=== PATIENT | female | born 1970 | race African-American/Black ===

== ENCOUNTER 2019-06-07 14:01 | Outpatient (CLI) | payer OTHER | END 2019-06-07 22:57 | disposition home or self-care (01) | LOC: MAMMO 14:01 | DX: N63.20 Unspecified lump in the left breast, unspecified quadrant (principal); R22.1 Localized swelling, mass and lump, neck ==

== ENCOUNTER 2019-11-01 09:40 | Outpatient (CLI) | payer OTHER | END 2019-11-01 20:12 | disposition home or self-care (01) | LOC: RAD 09:40 | DX: M54.5 Low back pain (principal); M54.31 Sciatica, right side; M62.830 Muscle spasm of back ==

== ENCOUNTER 2019-11-10 08:59 | Outpatient (CLI) | payer OTHER | END 2019-11-10 23:20 | disposition home or self-care (01) | LOC: LAB 08:59 | DX: Z20.828 Contact with and (suspected) exposure to other viral communicable diseases (principal) | CPT/HCPCS: 87635; U0003 ==

== ENCOUNTER 2020-01-05 12:13 | Outpatient (CLI) | payer OTHER | END 2020-01-05 19:36 | disposition home or self-care (01) | LOC: LAB 12:13 | PROVIDERS: ATTEND Family Medicine | DX: Z20.828 Contact with and (suspected) exposure to other viral communicable diseases (principal) | CPT/HCPCS: 87635; G2023; U0003 ==

== ENCOUNTER 2020-02-26 16:22 | Outpatient (CLI) | payer OTHER ==
[2020-02-26 16:46] LABS: PLATELET COUNT 308 K/uL (152-353)
[2020-02-26 17:15] LABS: POTASSIUM 3.6 mmol/L (3.6-5.2); SODIUM 139 mmol/L (136-145)
[2020-06-07] MEDS ORDERED: SERT100T PO (02:36)
[2020-06-07] MEDS ORDERED: METO-837 PO (02:48)
[2020-06-07] MEDS ORDERED: MUPIROCIN2 % EX (02:50)
[2020-06-07] MEDS ORDERED: TOLT4CAP2 PO (02:51)
[2020-06-07] MEDS ORDERED: SOMA350 MG PO (02:52)
[2020-06-07] MEDS ORDERED: PERCOCET1 TA3 PO (02:53)
[2020-06-07] MEDS ORDERED: AMBIEN5 MG PO (02:54)
[2020-06-07] MEDS ORDERED: LORA0.5T17 PO (02:54)
[2020-06-07] MEDS ORDERED: HYDROXYZINE HYD25 MG PO (02:56)
[2020-06-07] MEDS ORDERED: NEURONTIN 100M100 MG PO (02:56)
[2020-06-07] MEDS ORDERED: PROM25TA52 PO (02:57)
[2020-06-07] MEDS ORDERED: FURO40TA93 PO (02:58)
[2020-06-07] MEDS ORDERED: SERT50TA PO (03:01)
== END 2020-02-26 20:52 | disposition home or self-care (01) ==
LOC: LABW 16:22
PROVIDERS: ATTEND Family Medicine
DX: G89.4 Chronic pain syndrome (principal); R06.02 Shortness of breath; R00.2 Palpitations
CPT/HCPCS: 36415; 80053; 82550; 83735; 84439; 84443; 84484; 85027

== ENCOUNTER 2020-04-03 07:46 | Outpatient (CLI) | payer OTHER ==
[2020-04-03 08:30] LABS: PLATELET COUNT 325 K/uL (152-353)
[2020-04-03 09:17] LABS: POTASSIUM 4.2 mmol/L (3.6-5.2)
[2020-06-07] MEDS ORDERED: SERT100T PO (02:36)
[2020-06-07] MEDS ORDERED: METO-837 PO (02:48)
[2020-06-07] MEDS ORDERED: MUPIROCIN2 % EX (02:50)
[2020-06-07] MEDS ORDERED: TOLT4CAP2 PO (02:51)
[2020-06-07] MEDS ORDERED: SOMA350 MG PO (02:52)
[2020-06-07] MEDS ORDERED: PERCOCET1 TA3 PO (02:53)
[2020-06-07] MEDS ORDERED: AMBIEN5 MG PO (02:54)
[2020-06-07] MEDS ORDERED: LORA0.5T17 PO (02:54)
[2020-06-07] MEDS ORDERED: HYDROXYZINE HYD25 MG PO (02:56)
[2020-06-07] MEDS ORDERED: NEURONTIN 100M100 MG PO (02:56)
[2020-06-07] MEDS ORDERED: PROM25TA52 PO (02:57)
[2020-06-07] MEDS ORDERED: FURO40TA93 PO (02:58)
[2020-06-07] MEDS ORDERED: SERT50TA PO (03:01)
== END 2020-04-03 20:49 | disposition home or self-care (01) ==
LOC: LABW 07:46
PROVIDERS: ATTEND Family Medicine
DX: I10 Essential (primary) hypertension (principal); R60.0 Localized edema; Z68.42 Body mass index [BMI] 45.0-49.9, adult; D64.9 Anemia, unspecified; G93.2 Benign intracranial hypertension; R42 Dizziness and giddiness; E55.9 Vitamin D deficiency, unspecified
CPT/HCPCS: 36415; 80053; 80061; 81000; 82306; 82728; 83540; 83550; 83880; 84439; 84443; 85027

== ENCOUNTER 2020-04-15 15:22 | Outpatient (CLI) | payer OTHER ==
[2020-06-07] MEDS ORDERED: SERT100T PO (02:36)
[2020-06-07] MEDS ORDERED: METO-837 PO (02:48)
[2020-06-07] MEDS ORDERED: MUPIROCIN2 % EX (02:50)
[2020-06-07] MEDS ORDERED: TOLT4CAP2 PO (02:51)
[2020-06-07] MEDS ORDERED: SOMA350 MG PO (02:52)
[2020-06-07] MEDS ORDERED: PERCOCET1 TA3 PO (02:53)
[2020-06-07] MEDS ORDERED: AMBIEN5 MG PO (02:54)
[2020-06-07] MEDS ORDERED: LORA0.5T17 PO (02:54)
[2020-06-07] MEDS ORDERED: HYDROXYZINE HYD25 MG PO (02:56)
[2020-06-07] MEDS ORDERED: NEURONTIN 100M100 MG PO (02:56)
[2020-06-07] MEDS ORDERED: PROM25TA52 PO (02:57)
[2020-06-07] MEDS ORDERED: FURO40TA93 PO (02:58)
[2020-06-07] MEDS ORDERED: SERT50TA PO (03:01)
== END 2020-04-15 23:18 | disposition home or self-care (01) ==
LOC: LAB 15:22
PROVIDERS: ATTEND Family Medicine
DX: R19.7 Diarrhea, unspecified (principal)
CPT/HCPCS: 82272; 87015; 87045; 87324; 87328; 87329; 87449; 87899

== ENCOUNTER 2020-06-21 11:23 | Outpatient (CLI) | payer OTHER ==
[~2020-06-21 11:23] MED LIST: AMBIEN5 MG PO; FURO40TA93 PO; HYDROXYZINE HYD25 MG PO; LORA0.5T17 PO; METO-837 PO; MUPIROCIN2 % EX; NEURONTIN 100M100 MG PO; PERCOCET1 TA3 PO; PROM25TA52 PO; SERT100T PO; SERT50TA PO; SOMA350 MG PO; TOLT4CAP2 PO
== END 2020-06-21 21:53 | disposition home or self-care (01) ==
LOC: NM 11:23
PROVIDERS: ATTEND Family Medicine
DX: R11.0 Nausea (principal); R10.11 Right upper quadrant pain
CPT/HCPCS: A9537

== ENCOUNTER 2020-10-23 12:32 | Emergency (ER) | payer OTHER ==
[~2020-10-23] VITALS: Ht 167.6 cm; Wt 131.5 kg
[2020-10-23 12:41] VITALS: BP 159/93; TEMP 98.7
[2020-10-23 14:05] LABS: PLATELET COUNT 323 K/uL (152-353)
[2020-10-23 14:21] LABS: POTASSIUM 3.8 mmol/L (3.6-5.2); SODIUM 138 mmol/L (136-145)
== END 2020-10-23 15:46 | disposition home or self-care (01) ==
LOC: ED 12:32
PROVIDERS: Family Medicine
DX: K21.9 Gastro-esophageal reflux disease without esophagitis (principal); R07.89 Other chest pain
CPT/HCPCS: 80053; 82553; 83605; 83880; 84484; 85027; 93005; 99283